=== PATIENT | female | born 1955 | race Caucasian/White ===

== ENCOUNTER 2022-09-05 18:25 | Emergency (ER) | payer BC, MEDICARE ==
[2022-09-05] MEDS ORDERED: Lisinopril 10 MG Tab PO ONE (19:15)
== END 2022-09-05 19:40 | disposition home or self-care (01) ==
LOC: JD.ED 18:25
DX: I10 Essential (primary) hypertension (principal); Z79.899 Other long term (current) drug therapy
CPT/HCPCS: 99283; A9270